=== PATIENT | female | born 1970 | race Caucasian/White ===

== ENCOUNTER 2019-10-14 15:08 | Emergency (ER) | payer BC, OTHER ==
[~2019-10-14] VITALS: Ht 172.7 cm; Wt 82.2 kg
[2019-10-14] MEDS ORDERED: DOCU100C37 (15:52)
[2019-10-14] MEDS ORDERED: OXYC-471 (15:52)
[2019-10-14] MEDS ORDERED: ZOLP5TAB7 (15:52)
[2019-10-14] MEDS ORDERED: LACTATED RINGERS 1,000 ML IV ONE (16:03)
[2019-10-14] MEDS ORDERED: fentaNYL INJECTION 100 MCG/2 ML AMP IVP STA (16:04)
--- NOTE | 2019-10-14 16:10 | ED Abdominal Pain ---
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 HAS BEEN TAKING OXYCODONE FOR PAIN WITH [employer] HAD SHARP LOW ABD PAIN. FEELING BETTER ON ADMIT . REPORTS CONSTIPATON. Sepsis Screen: No Definite Risk Source of Information: Patient Exam Limitations: No Limitations History of Present Illness Date Seen by Provider: Oct 14, 2019 Time Seen by Provider: 15:50 Initial Comments Here with report of lower abdominal pain and no bowel movement since hysterectomy done last Monday. This was initiated laparoscopic but then converted to open due to significant adhesions. She was doing well since but has not had a bowel movement and has had increasing pain. She has tried MiraLAX and has taken her stool softeners but still has not had bowel movement. She had difficulty with initiating bowel movement after her last laparoscopic surgery many years ago. Also has pain in the low abdomen in the suprapubic region and feels fullness there. Denies dysuria but does have pain in the bladder area. Does note small amount of vaginal bleeding. Denies fever or chills. Denies nausea or vomiting. She has not taken her to PM pain medicine dose. She is on oxycodone for the pain. Timing/Duration: 2-3 Days, Getting Worse Severity/Quality: Moderate, Aching Location: Generalized Abdomen, Suprapubic Radiation: No Radiation Activities at Onset: None Modifying Factors: Worsens With Movement, Worsens With Palpation; Improves With Resting Associated Symptoms: No Back Pain, No Chest Pain, No Fever/Chills, No Nausea/Vomiting, No Shortness of Air, No Weakness Allergies and Home Medications Allergies Coded Allergies: No Known Drug Allergies (Unverified , 10/14/19) Patient Home Medication List Home Medication List Reviewed: Yes Review of Systems Review of Systems Constitutional: see HPI EENTM: No Symptoms Reported Respiratory: No Symptoms Reported Cardiovascular: No Symptoms Reported Gastrointestinal: See HPI, Abdominal Pain, Constipated; Denies Rectal Bleeding Genitourinary: See HPI, Pain Musculoskeletal: no symptoms reported Skin: no symptoms reported Psychiatric/Neurological: No Symptoms Reported All Other Systems Reviewed Negative Unless Noted: Yes Past Bkesfzc-Bhbild-Yzhmrj Hx Past Med/Social Hx: Reviewed Nursing Past Med/Soc Hx Patient Social History Alcohol Use: Denies Use Recreational Drug Use: No Smoking Status: Never a Smoker Recent Foreign Travel: No Contact w/Someone Who Travel: No Recent Infectious Disease Expo: No Past Medical History Surgeries: Yes Hysterectomy, Valve Replacement Respiratory: No Cardiac: No Neurological: No Genitourinary: No Gastrointestinal: No Musculoskeletal: No Endocrine: No HEENT: No Cancer: No Psychosocial: No Family Medical History Reviewed Nursing Family Hx Physical Exam Vital Signs Vital Signs - First Documented 10/14/19 15:08 Temp 36.8 Pulse 100 Resp 18 B/P (MAP) 133/81 (98) Pulse Ox 100 Capillary Refill : Less Than 3 Seconds Height/Weight/BMI Height: '" Weight: lbs. oz. kg; 27.00 BMI Method: General Appearance: WD/WN, no apparent distress Neck: full range of motion, supple Respiratory: lungs clear, normal breath sounds Cardiovascular: no murmur, tachycardia Peripheral Pulses: 2+ Dorsalis Pedis (R), 2+ Left Dors-Pedis (L), 2+ Radial Pulses (R), 2+ Radial Pulses (L) Gastrointestinal: soft, abnormal bowel sounds (hypoactive), tenderness (diffusely but greatest in the lower abdomen especially over the suprapubic region) Extremities: non-tender, normal inspection Back: normal inspection, no CVA tenderness, no vertebral tenderness Neurologic/Psychiatric: alert, oriented x 3 Skin: normal color, warm/dry Progress/Results/Core Measures Results/Orders Lab Results Laboratory Tests Test 10/14/19 16:06 10/14/19 17:01 Range/Units White Blood Count 8.1 4.3-11.0 10^3/uL Red Blood Count 4.16 L 4.35-5.85 10^6/uL Hemoglobin 10.7 L 11.5-16.0 G/DL Hematocrit 33 L 35-52 % Mean Corpuscular Volume 79 L 80-99 FL Mean Corpuscular Hemoglobin 26 25-34 PG Mean Corpuscular Hemoglobin Concent 33 32-36 G/DL Red Cell Distribution Width 14.4 10.0-14.5 % Platelet Count 391 130-400 10^3/uL Mean Platelet Volume 9.6 7.4-10.4 FL Neutrophils (%) (Auto) 76 H 42-75 % Lymphocytes (%) (Auto) 13 12-44 % Monocytes (%) (Auto) 10 0-12 % Eosinophils (%) (Auto) 2 0-10 % Basophils (%) (Auto) 0 0-10 % Neutrophils # (Auto) 6.1 1.8-7.8 X 10^3 Lymphocytes # (Auto) 1.1 1.0-4.0 X 10^3 Monocytes # (Auto) 0.8 0.0-1.0 X 10^3 Eosinophils # (Auto) 0.1 0.0-0.3 10^3/uL Basophils # (Auto) 0.0 0.0-0.1 10^3/uL Sodium Level 143 135-145 MMOL/L Potassium Level 2.8 L 3.6-5.0 MMOL/L Chloride Level 106 98-107 MMOL/L Carbon Dioxide Level 26 21-32 MMOL/L Anion Gap 11 5-14 MMOL/L Blood Urea Nitrogen 8 7-18 MG/DL Creatinine 1.00 0.60-1.30 MG/DL Estimat Glomerular Filtration Rate 59 BUN/Creatinine Ratio 8 Glucose Level 118 H 70-105 MG/DL Calcium Level 9.7 8.5-10.1 MG/DL Corrected Calcium 9.5 8.5-10.1 MG/DL Total Bilirubin 0.3 0.1-1.0 MG/DL Aspartate Amino Transf (AST/SGOT) 9 5-34 U/L Alanine Aminotransferase (ALT/SGPT) 9 0-55 U/L Alkaline Phosphatase 74 40-136 U/L C-Reactive Protein High Sensitivity 2.73 H 0.00-0.50 MG/DL Total Protein 7.1 6.4-8.2 GM/DL Albumin 4.2 3.2-4.5 GM/DL Urine Color YELLOW Urine Clarity CLEAR Urine pH 8.5 5-9 Urine Specific [place] 1.010 L 1.016-1.022 Urine Protein NEGATIVE NEGATIVE Urine Glucose (UA) NEGATIVE NEGATIVE Urine Ketones NEGATIVE NEGATIVE Urine Nitrite NEGATIVE NEGATIVE Urine Bilirubin NEGATIVE NEGATIVE Urine Urobilinogen 0.2 < = 1.0 MG/DL Urine Leukocyte Esterase NEGATIVE NEGATIVE Urine RBC (Auto) 3+ H NEGATIVE Urine RBC 0-2 /HPF Urine WBC NONE /HPF Urine Squamous Epithelial Cells 0-2 /HPF Urine Crystals NONE /LPF Urine Bacteria NEGATIVE /HPF Urine Casts NONE /LPF Urine Mucus NEGATIVE /LPF Urine Culture Indicated NO My Orders Orders - NAPAKIAK,MANJINDER D MD Cbc With Automated Diff (10/14/19 16:03) Comprehensive Metabolic Panel (10/14/19 16:03) Hs C Reactive Protein (10/14/19 16:03) Ua Culture If Indicated (10/14/19 16:03) Ed Iv/Invasive Line Start (10/14/19 16:03) Lactated Ringers (Lr 1000 Ml Iv Solution (10/14/19 16:03) Ct Abdomen/Pelvis W (10/14/19 16:03) Fentanyl Injection (Sublimaze Injection (10/14/19 16:04) Iohexol Injection (Omnipaque 350 Mg/Ml 1 (10/14/19 16:30) Received Contrast (Hold Metformin- Contr (10/14/19 16:30) Sodium Chloride Flush (Catheter Flush Sy (10/14/19 16:30) Ns (Ivpb) (Sodium Chloride 0.9% Ivpb Bag (10/14/19 16:30) Lorazepam Injection (Ativan Injection) (10/14/19 18:30) Medications Given in ED Current Medications Medications Dose Ordered Sig/Renetta Route Start Time Stop Time Status Last Admin Dose Admin Iohexol 100 ml ONCE ONCE IV 10/14/19 16:30 10/14/19 16:31 DC 10/14/19 16:55 100 ML Lactated Ringer's 1,000 ml @ 0 mls/hr Q0M ONCE IV 10/14/19 16:03 10/14/19 16:05 DC 10/14/19 16:16 1,000 MLS/HR Sodium Chloride 10 ml NEEDED PRN IV 10/14/19 16:30 10/14/19 16:55 10 ML Sodium Chloride 100 ml ONCE ONCE IV 10/14/19 16:30 10/14/19 16:31 DC 10/14/19 16:55 80 ML Vital Signs/I&O 10/14/19 15:08 Temp 36.8 Pulse 100 Resp 18 B/P (MAP) 133/81 (98) Pulse Ox 100 Blood Pressure Mean: 98 Progress Progress Note : Progress Note Seen and evaluated. IV, labs, UA, LR 1 L bolus and fentanyl [address] abdomen and pelvis with contrast ordered due to fullness and increasing pain. 09/25/04: CT is complete and I have discussed the case with our surgeon. There is question that this would be amiable to IR draining. This would be a preferred approach but are radiologist is not available until at least noon tomorrow. I did discuss the case with Dr. Cole at [facility], regional director for Dr. Clay of the LA[employer] REPA[employer] HELPER service. After reviewing the case, she would prefer the patient in their facility which is reasonable. Patient agrees. Patient will go by EMS due to pain medication requirement and difficulty moving due to pain. Patient agrees to plan. We have sent digital copy of the CT via cloud to [facility]. I did ask about antibiotics and blood cultures/lactic acid. We will hold on that until she arrives at [place]. 1820: Initial fluids complete. Patient states that she feels a bit anxious and pain is a little better currently. She does have some anxiety concerns. Ativan 0.5 mg IV given. Pending transfer. Room assignment has been received. The EMS transfer and availability. Diagnostic Imaging Diagonstic Imaging: CT Plain Films/CT/US/NM/MRI: abdomen, pelvis Comments [facility]. [place], [place] NAME: VARGHESE WEBB [facility] REC#: [id number] PT STATUS: REG ER : 1970 PHYSICIAN: MANJINDER HOBBS MD ADMIT DATE: 10/14/19/ER Signed Date of Exam:10/14/19 CT ABDOMEN/PELVIS W PROCEDURE: CT abdomen and pelvis with contrast. TECHNIQUE: Multiple contiguous axial images were obtained through the abdomen and pelvis after administration of intravenous contrast. Auto Exposure Controls were utilized during the CT exam to meet ALARA standards for radiation dose reduction. INDICATION: Pain, constipation, hysterectomy. COMPARISON: No priors. FINDINGS: There is at least partially loculated rim-enhancing and partial gas containing pathological fluid collection suspicious for abscess interposed between the posterior inferior aspect of the urinary bladder and ventral to the rectosigmoid junction. This measures 6.8 cm transverse with AP thickness of 4.8 cm and a cephalocaudal height of 4.8 cm. There is a small amount of presumed residual postoperative gas in the lower abdominal subcutaneous fat. There is no evidence for bowel obstruction. No air within the unremarkable appearing urinary bladder lumen. There were no findings of appendicitis or diverticulitis. Simple cyst in the liver present. Liver, spleen, adrenals, pancreas, gallbladder and bile ducts all otherwise unremarkable. There is no urinary tract obstruction. IMPRESSION: 1. Rim-enhancing gas/fluid collection in the midline pelvis most suggestive of an abscess. This inferiorly is at the level of the vaginal cuff and is interposed between the bladder and rectum. It would be amenable to CT-guided drainage. 2. No urinary tract obstruction. No other significant finding. Dictated by: Dictated on workstation # [id number] Dict: 10/14/191658 Trans: 10/14/191708 [id number] Interpreted by: CIRA CALLAWAY Electronically signed by: CIRA CALLAWAY 10/14/191708 Reviewed: Reviewed by Me Departure Impression Primary Impression: Intra-abdominal abscess Additional Impression: Constipation Qualified Codes: K59.00 - Constipation, unspecified Disposition: 02 XFER SHT-TRM HOSP Condition: Stable Transfer Transfer Reason: Exceeds level of care Time Spoke to Accepting Phy: 18:05 Transfer Facility: [place], [place], Dr. Cole accepting Method of Transfer: EMS Departure-Patient Inst. Referrals: PAULINO STORY MD (PCP/Family) Primary Care Physician MANJINDER HOBBS MD Oct 14, 2019 16:10
[2019-10-14 16:13] LABS: BASOPHILS % (AUTO) 0 % (0-10); EOSINOPHILS # (AUTO) 0.1 10^3/uL (0.0-0.3); EOSINOPHILS % (AUTO) 2 % (0-10); HEMATOCRIT 33 % (35-52); HEMOGLOBIN 10.7 G/DL (11.5-16.0); LYMPHOCYTES # (AUTO) 1.1 X 10^3 (1.0-4.0); LYMPHOCYTES % (AUTO) 13 % (12-44); MEAN CORPUSCULAR HEMOGLOBIN 26 PG (25-34); MEAN CORPUSCULAR HGB CONC 33 G/DL (32-36); MEAN CORPUSCULAR VOLUME 79 FL (80-99); MEAN PLATELET VOLUME 9.6 FL (7.4-10.4); MONOCYTES # (AUTO) 0.8 X 10^3 (0.0-1.0); MONOCYTES % (AUTO) 10 % (0-12); NEUTROPHILS # (AUTO) 6.1 X 10^3 (1.8-7.8); NEUTROPHILS % (AUTO) 76 % (42-75); PLATELET COUNT 391 10^3/uL (130-400); RED CELL DISTRIBUTION WIDTH 14.4 % (10.0-14.5); WHITE BLOOD COUNT 8.1 10^3/uL (4.3-11.0)
[2019-10-14] MEDS ORDERED: HOLD METFORMIN - RECEIVED CONTRAST 20 ML VIAL IV SCH (16:30)
[2019-10-14] MEDS ORDERED: IOHEXOL 350 MG/ML 100 ML (OMNIPAQUE 350) VIAL IV ONE (16:30)
[2019-10-14] MEDS ORDERED: NS 100 ML (IVPB) BAG IV ONE (16:30)
[2019-10-14] MEDS ORDERED: CATHETER FLUSH 10 ML SYR IV PRN (16:30)
[2019-10-14 16:34] LABS: ALBUMIN 4.2 GM/DL (3.2-4.5); BILIRUBIN,TOTAL 0.3 MG/DL (0.1-1.0); CALCIUM 9.7 MG/DL (8.5-10.1); POTASSIUM 2.8 MMOL/L (3.6-5.0); TOTAL PROTEIN 7.1 GM/DL (6.4-8.2)
--- NOTE | 2019-10-14 17:01 | NUR ---
UP TO BATHROOM VODIED 900 CC UA TO LAB
[2019-10-14 17:07] LABS: BILIRUBIN,URINE NEGATIVE (NEGATIVE); CLARITY,URINE CLEAR; COLOR,URINE YELLOW; GLUCOSE, URINE (UA) NEGATIVE (NEGATIVE); KETONES,URINE NEGATIVE (NEGATIVE); LEUKOCYTE ESTERASE ,URINE NEGATIVE (NEGATIVE); NITRITE,URINE NEGATIVE (NEGATIVE); PH,URINE 8.5 (5-9); PROTEIN,URINE NEGATIVE (NEGATIVE)
--- NOTE | 2019-10-14 17:08 | Diagnostic Imaging Report ---
PROCEDURE: CT abdomen and pelvis with contrast. TECHNIQUE: Multiple contiguous axial images were obtained through the abdomen and pelvis after administration of intravenous contrast. Auto Exposure Controls were utilized during the CT exam to meet ALARA standards for radiation dose reduction. INDICATION: Pain, constipation, hysterectomy. COMPARISON: No priors. FINDINGS: There is at least partially loculated rim-enhancing and partial gas containing pathological fluid collection suspicious for abscess interposed between the posterior inferior aspect of the urinary bladder and ventral to the rectosigmoid junction. This measures 6.8 cm transverse with AP thickness of 4.8 cm and a cephalocaudal height of 4.8 cm. There is a small amount of presumed residual postoperative gas in the lower abdominal subcutaneous fat. There is no evidence for bowel obstruction. No air within the unremarkable appearing urinary bladder lumen. There were no findings of appendicitis or diverticulitis. Simple cyst in the liver present. Liver, spleen, adrenals, pancreas, gallbladder and bile ducts all otherwise unremarkable. There is no urinary tract obstruction. IMPRESSION: 1. Rim-enhancing gas/fluid collection in the midline pelvis most suggestive of an abscess. This inferiorly is at the level of the vaginal cuff and is interposed between the bladder and rectum. It would be amenable to CT-guided drainage. 2. No urinary tract obstruction. No other significant finding. Dictated by: Dictated on workstation # [id number]
[2019-10-14 17:15] LABS: BACTERIA,URINE NEGATIVE /HPF; RBC,URINE 0-2 /HPF; SQUAMOUS EPITHELIAL CELL,UR 0-2 /HPF
--- NOTE | 2019-10-14 18:06 | NUR ---
[facility] [employer]TION CALLED TO INFORM OF
--- NOTE | 2019-10-14 18:10 | NUR ---
FACE SHEET FAXED TO [facility] CLOUDED TO [place].
--- NOTE | 2019-10-14 18:26 | NUR ---
EMS CALLED FOR TRANSFER PATIENT AWARE THAT EMS OUT WITH 2 TRANSFERS WILL TAKE HER WHEN BACK IN [place]
[2019-10-14] MEDS ORDERED: LORazepam INJ 2 MG/ML (ATIVAN) VIAL IVP ONE (18:30)
[2019-10-14 18:42] VITALS: BP 152/93
== END 2019-10-14 19:38 | disposition short-term general hospital (02) ==
LOC: ER 15:10
DX: K65.1 Peritoneal abscess (principal); K59.00 Constipation, unspecified; Z90.710 Acquired absence of both cervix and uterus
CPT/HCPCS: 36415; 74177; 80053; 81000; 85025; 86141